=== PATIENT | female | born 1965 | race Caucasian/White ===

== ENCOUNTER → 2021-02-06 | Outpatient (CLI) | payer BC, OTHER ==
[~2021-02-06] MED LIST: ALEVE220 MG PO; CIPRO500 MG PO; DEXILANT60 MG PO; EFFEXOR XR 150150 MG PO; IBUPROFEN800 MG PO; KLONOPIN TAB 00.5 MG PO; LASIX20 MG PO; LINZESS145 MCG PO; MUCINEX600 MG PO; NORCO 10-325 T1 EACH PO; NORCO 7.5-3251 EACH PO; OMEPRAZOLE40 MG PO; POTASSIUM CHLO10 ME2 PO; PRAMIPEXOLE DI0.5 MG PO; ROPINIROLE HCL4 MG PO; SYNTHROID200 MCG PO; ULTRAM50 MG PO; VITAMIN D250000 UNIT PO; WAL-ZYR10 M1 PO; ZOFRAN4 MG PO; ZOLOFT50 MG PO
== END ==
LOC: ECHO 02-03 10:00
DX: R60.9 Edema, unspecified (principal); I10 Essential (primary) hypertension
CPT/HCPCS: ECHO; 93306

== ENCOUNTER 2021-07-17 20:46 | Emergency (ER) | payer BC ==
[2021-07-17] MEDS ORDERED: LODINE CAP 300300 MG PO (23:45)
== END 2021-07-17 23:55 | disposition home or self-care (01) ==
LOC: ER1 20:46
DX: S83.92XA Sprain of unspecified site of left knee, initial encounter (principal); Z90.89 Acquired absence of other organs; Z90.710 Acquired absence of both cervix and uterus; Z88.2 Allergy status to sulfonamides; X50.1XXA Overexertion from prolonged static or awkward postures, initial encounter
CPT/HCPCS: 73564; 99283

== ENCOUNTER → 2021-08-26 | Day surgery (SDC) | payer BC ==
[~2021-08-26] MED LIST changes: +LODINE CAP 300300 MG PO; +REXULTI1 MG PO
== END | disposition home or self-care (01) ==
LOC: OR 05:18
DX: K63.9 Disease of intestine, unspecified (principal); K59.89 Other specified functional intestinal disorders; K64.1 Second degree hemorrhoids; E11.43 Type 2 diabetes mellitus with diabetic autonomic (poly)neuropathy; K58.1 Irritable bowel syndrome with constipation; E66.8 Other obesity; N95.1 Menopausal and female climacteric states; C55 Malignant neoplasm of uterus, part unspecified; E07.9 Disorder of thyroid, unspecified; G25.81 Restless legs syndrome; Z15.09 Genetic susceptibility to other malignant neoplasm; Z68.37 Body mass index [BMI] 37.0-37.9, adult; Z79.899 Other long term (current) drug therapy; Z88.2 Allergy status to sulfonamides; Z20.822 Contact with and (suspected) exposure to COVID-19; Z90.710 Acquired absence of both cervix and uterus
CPT/HCPCS: J1885; J2001; J2405; J2704; J7040; U0002

== ENCOUNTER → 2021-11-10 | Outpatient (CLI) | payer BC | LOC: MAMO 10:02 | DX: Z12.31 Encounter for screening mammogram for malignant neoplasm of breast (principal) | CPT/HCPCS: 77063; 77067 ==

== ENCOUNTER → 2022-04-15 | Outpatient (CLI) | payer BC ==
[2022-04-15 07:37] LABS: HEMOGLOBIN 10.6 gm/dl (12.3-15.3); RED BLOOD COUNT 4.36 M/UL (4.00-5.10); WHITE BLOOD COUNT 4.2 K/UL (4.5-11.0)
== END ==
LOC: LAB 07:13
PROVIDERS: Internal Medicine
DX: E03.9 Hypothyroidism, unspecified (principal); D69.1 Qualitative platelet defects
CPT/HCPCS: 36415; 80048; 80061; 80076; 84443; 85025

== ENCOUNTER → 2022-05-10 | Outpatient (CLI) | payer BC | LOC: CT 13:17 | DX: C55 Malignant neoplasm of uterus, part unspecified (principal); R79.89 Other specified abnormal findings of blood chemistry; K76.0 Fatty (change of) liver, not elsewhere classified | CPT/HCPCS: Q9967 ==